=== PATIENT | female | born 1975 | race Caucasian/White ===

== ENCOUNTER → 2018-04-02 | Outpatient (CLI) | payer OTHER ==
--- NOTE | 2018-04-02 18:33 | Diagnostic Imaging Report ---
EXAM: Renal Ultrasound INDICATION: Recurrent UTI. COMPARISON: None TECHNIQUE: Transverse and longitudinal images of the kidneys and bladder were obtained. FINDINGS: Right Kidney: Size: 11.7 cm Echogenicity: Normal Parenchymal thickness: Normal Collecting system: No hydronephrosis Stones: None Cyst/Mass: None Left Kidney: Size: 13.4 cm Echogenicity: Normal Parenchymal thickness: Normal Collecting system: No hydronephrosis Stones: 0.9 cm lateral midpole calculus. Cyst/Mass: 1.9 x 1.4 x 1.4 cm superior pole cyst. 1.4 x 11.2 cm medial superior pole cyst. Bladder: Unremarkable. IMPRESSION: 0.9 cm left renal midpole calculus. Left renal cysts. Signed by: Dr. Gordon Kang MD on 04/02/2018 6:30 PM
== END ==
LOC: US 16:49
PROVIDERS: ATTEND Urology
DX: N39.0 Urinary tract infection, site not specified (principal)
CPT/HCPCS: 76770

== ENCOUNTER 2020-03-05 15:22 | Inpatient (IN) | payer OTHER ==
[~2020-03-05] VITALS: Ht 160 cm; Wt 87.8 kg
--- OUTSIDE RECORDS SUMMARY | 2020-03-05 15:25 | XMS REPORT ---
Author Author [facility] Organization [facility] Address [address] [place] [address] Phone Unavailable Care Team Providers Care Fiscal Technician Name Role Phone Jeyson PRINCE Attphys Unavailable Problems This patient has no known problems. Allergies, Adverse Reactions, Alerts This patient has no known allergies or adverse reactions. Medications This patient has no known medications. Procedures This patient has no known procedures. Results Test Description Test Time Test Comments Results Result Comments Source US RENAL RETROPERITONEAL COMP 2018-04-02 18:26:00 [place] [address] Patient Name: ERICK VO MR #: [id number] : 1975 Age/Sex: 42/F Req #: [id number] Adm Physician: Ordered by: JOSE R PRINCE MD Report #: [id number] Location: Room/Bed: Procedure: [id number] US/US RENAL RETROPERITONEAL COMP Exam Date: Exam Time: REPORT STATUS: Signed EXAM: Renal Ultrasound INDICATION: Recurrent UTI. COMPARISON: None TECHNIQUE: Transverse and longitudinal images of the kidneys and bladder were obtained. FINDINGS: Right Kidney: Size: 11.7 cm Echogenicity: Normal Parenchymal thickness: Normal Collecting system: No hydronephrosis Stones: None Cyst/Mass: None Left Kidney: Size: 13.4 cm Echogenicity: Normal Parenchymal thickness: Normal Collecting system: No hydronephrosis Stones: 0.9 cm lateral midpole calculus. Cyst/Mass: 1.9 x 1.4 x 1.4 cm superior pole cyst. 1.4 x 11.2 cm medial superior pole cyst. Bladder: Unremarkable. IMPRESSION: 0.9 cm left renal midpole calculus. Left renal cysts. Signed by: Dr. Grodon Damon MD on 04/02/2018 6:30 PM Dictated By: GORDON DAMON MD 29 Transcribed By: TANIA on 04/02/181829 COPY TO: JOSE R PRINCE MD
[2020-03-05] MEDS ORDERED: SODIUM CHLORIDE 0.9% 1000ML 1,000 ML IV STA ×2 (15:47)
[2020-03-05] MEDS ORDERED: FENTANYL CITRATE/PF 100MCG/2 ML INJ ONE (15:58)
[2020-03-05] MEDS ORDERED: SUCCINYLCHOLINE CHLORIDE 20 MG/ML 10ML VIAL ONE (16:15)
[2020-03-05] MEDS ORDERED: ACETAMINOPHEN 1000 MG/100 ML IV ONE (16:15)
[2020-03-05] MEDS ORDERED: DEXAMETHASONE SOD PHOS INJ 4 MG/ML VIAL ONE (16:15)
[2020-03-05] MEDS ORDERED: LIDOCAINE HCL 2% LOCAL INJ 5 ML SDV VIAL INJ ONE (16:15)
[2020-03-05] MEDS ORDERED: ONDANSETRON HCL INJ 2MG/ML 2ML 2 MG/ML VIAL ONE ×2 (16:15→21:02)
[2020-03-05 16:19] LABS: BASOPHILS % 0.2 % (0.0-1.0); HEMATOCRIT 36.7 % (34.2-44.1); HEMOGLOBIN 12.1 g/dL (12.0-16.0); LYMPHOCYTES # (AUTO) 0.8 (1.0-3.2); LYMPHOCYTES % 6.7 % (18.0-39.1); MEAN CORPUSCULAR HEMOGLOBIN 27.4 pg (28-32); MEAN CORPUSCULAR VOLUME 83.2 fL (81-99); MONOCYTES # (AUTO) 0.7 (0.2-0.8); MONOCYTES % 5.9 % (4.4-11.3); NEUTROPHILS # (AUTO) 9.9 (2.1-6.9); NEUTROPHILS % 86.8 % (38.7-80.0); PLATELET COUNT 215 x10e3/uL (140-360); RED BLOOD COUNT 4.41 x10e6/uL (3.6-5.1); RED CELL DISTRIBUTION WIDTH 14.5 % (11.7-14.4)
[2020-03-05] MEDS ORDERED: CEFEPIME 1GM/NS 0.9% 50 ML 50 ML IV SCH (16:30)
[2020-03-05 16:33] LABS: ALBUMIN 3.3 g/dL (3.5-5.0); ALBUMIN/GLOBULIN RATIO 0.8 (0.8-2.0); ANION GAP 17.2 mmol/L (8-16); CALCIUM 9.3 mg/dL (8.4-10.2); CREATININE, SERUM 1.24 mg/dL (0.57-1.11); POTASSIUM 3.2 mmol/L (3.5-5.1)
[2020-03-05 16:49] LABS: CLARITY,URINE SL CLOUDY (CLEAR); COLOR,URINE YELLOW (YELLOW); KETONES,URINE 2+ (NEGATIVE); LEUKOCYTE ESTERASE ,URINE SMALL (NEGATIVE); NITRITE,URINE POSITIVE (NEGATIVE); PROTEIN,URINE DIPSTICK >=300 (NEGATIVE); URINE UROBILINOGEN 0.2 mg/dL (0.2 - 1)
[2020-03-05 16:50] LABS: BILIRUBIN,URINE SMALL (NEGATIVE)
[2020-03-05 17:03] LABS: BACTERIA,URINE MANY /HPF; EPITHELIAL CELLS,URINE MANY /LPF
--- NOTE | 2020-03-05 18:21 | Emergency Department Note ---
History of Present Illnes History of Present Illness Chief Complaint: Genitourinary History of Present Illness This is a 44 year old female sent to the ED from Dr. Monique's office- pt complaining of flank pain and fevers for 3 days . Chief Complaint Comment PATIENT IN FROM HOME WITH COMPLAINTS OF LEFT FLANK PAIN AND ABDOMINAL PAIN SINCE THURSDAY; PATIENT MOANING AND CRYING IN TRIAGE, FEBRILE, RATES PAIN 10/10. STATES WAS SENT FROM DR MONIQUE'S OFFICE FOR ADMISSION. PATIENT ALERT AND ORIENTED, AMBULATORY WITHOUT ASSISTANCE Historian: Patient, Family Member Arrival Mode: Car Doctor'S Assistant Required: No Onset (how long ago): day(s) Radiation: back Severity: moderate Onset quality: gradual Timing of current episode: constant Progression: worsening Relieving factors: none Associated symptoms: fever/chills, nausea/vomiting Past Medical/Family History Physician Review I have reviewed the patient's past medical and family history. Any updates have been documented here. Past Medical History Recent Fever: No Clinical Suspicion of Infectio: No New/Unexplained Change in Ment: No Past Medical History: Hypertension, Kidney Stones Other Surgery: NODULES REMOVED FROM VOCAL CORDS I&D TO LEFT BREAST Social History Smoking Cessation: Never Smoker Counseling Performed: No Alcohol Use: None Any Illegal Drug Use: No TB Exposure/Symptoms: No Physically hurt or threatened: No Family History Family history of heart diseas: No Other Last Tetanus: UNKNOWN Any Pre-Existing Lines (PICC,: No Is patient up to date on immun: Yes Last Flu: UTD Last Pneumovax: NA Review of Systems Review of Systems Constitutional: as per HPI, chills, fever EENTM: no symptoms Cardiovascular: no symptoms Respiratory: no symptoms Gastrointestinal: no symptoms Genitourinary: no symptoms, dysuria, frequency, pain Musculoskeletal: no symptoms Neurological: no symptoms Psychological: no symptoms Endocrine: no symptoms Hematological/Lymphatic: no symptoms Review of other systems All other systems reviewed and negative. Physical Exam Related Data Allergies: Coded Allergies: No Known Allergies (Unverified , 12/29/16) Triage Vital Signs Vital Signs Date Time Temp Pulse Resp B/P (MAP) Pulse Ox O2 Delivery O2 Flow Rate FiO2 03/05/20 15:45 103.2 130 30 166/114 97 Physical Exam CONSTITUTIONAL Constitutional: well-developed, obese, ill appearing HENT HENT: normocephalic, atraumatic, oropharynx clear/moist, nose normal HENT L/R: left ext ear normal, right ext ear normal EYES Eyes: PERRL, conjunctivae normal NECK Neck: ROM normal PULMONARY Pulmonary: effort normal, breath sounds normal CARDIOVASCULAR Cardiovascular: regular rhythm, heart sounds normal, capillary refill normal, tachycardia GASTROINTESTINAL Abdominal: soft, bowel sounds normal GENITOURINARY Genitourinary: exam deferred SKIN Skin: warm MUSCULOSKELETAL Musculoskeletal: ROM normal NEUROLOGICAL Neurological: alert, oriented x 3, no gross motor or sensory deficits PSYCHOLOGICAL Psychological: mood/affect normal Results Laboratory Result Diagram: 03/05/20 1555 03/05/20 1555 Laboratory Laboratory Tests Test 03/05/20 15:55 03/05/20 15:48 White Blood Count 11.41 x10e3/uL (4.8-10.8) Red Blood Count 4.41 x10e6/uL (3.6-5.1) Hemoglobin 12.1 g/dL (12.0-16.0) Hematocrit 36.7 % (34.2-44.1) Mean Corpuscular Volume 83.2 fL (81-99) Mean Corpuscular Hemoglobin 27.4 pg (28-32) Mean Corpuscular Hemoglobin Concent 33.0 g/dL (31-35) Red Cell Distribution Width 14.5 % (11.7-14.4) Platelet Count 215 x10e3/uL (140-360) Neutrophils (%) (Auto) 86.8 % (38.7-80.0) Lymphocytes (%) (Auto) 6.7 % (18.0-39.1) Monocytes (%) (Auto) 5.9 % (4.4-11.3) Eosinophils (%) (Auto) 0.0 % (0.0-6.0) Basophils (%) (Auto) 0.2 % (0.0-1.0) Neutrophils # (Auto) 9.9 (2.1-6.9) Lymphocytes # (Auto) 0.8 (1.0-3.2) Monocytes # (Auto) 0.7 (0.2-0.8) Eosinophils # (Auto) 0.0 (0.0-0.4) Basophils # (Auto) 0.0 (0.0-0.1) Absolute Immature Granulocyte (auto 0.04 x10e3/uL (0-0.1) Sodium Level 135 mmol/L (136-145) Potassium Level 3.2 mmol/L (3.5-5.1) Chloride Level 100 mmol/L (98-107) Carbon Dioxide Level 21 mmol/L (22-29) Anion Gap 17.2 mmol/L (8-16) Blood Urea Nitrogen 16 mg/dL (7-26) Creatinine 1.24 mg/dL (0.57-1.11) Estimat Glomerular Filtration Rate 47 ML/MIN (60-) BUN/Creatinine Ratio 13 (6-25) Glucose Level 126 mg/dL (74-118) Lactic Acid Level 2.1 mmol/L (0.5-2.0) Calcium Level 9.3 mg/dL (8.4-10.2) Total Bilirubin 0.7 mg/dL (0.2-1.2) Aspartate Amino Transf (AST/SGOT) 43 IU/L (5-34) Alanine Aminotransferase (ALT/SGPT) 40 IU/L (0-55) Alkaline Phosphatase 60 IU/L (40-150) Total Protein 7.4 g/dL (6.5-8.1) Albumin 3.3 g/dL (3.5-5.0) Globulin 4.1 g/dL (2.3-3.5) Albumin/Globulin Ratio 0.8 (0.8-2.0) Human Chorionic Gonadotropin, Qual Negative (NEGATIVE) Urine Color Yellow (YELLOW) Urine Clarity Sl cloudy (CLEAR) Urine pH 6 (5 - 7) Urine Specific Stickney 1.030 (1.010-1.025) Urine Protein >=300 (NEGATIVE) Urine Glucose (UA) Negative (NEGATIVE) Urine Ketones 2+ (NEGATIVE) Urine Blood Moderate (NEGATIVE) Urine Nitrite Positive (NEGATIVE) Urine Bilirubin Small (NEGATIVE) Urine Urobilinogen 0.2 mg/dL (0.2 - 1) Urine Leukocyte Esterase Small (NEGATIVE) Urine RBC 11-20 /HPF (0-5) Urine WBC 11-20 /HPF (0-5) Urine Epithelial Cells Many /LPF (NONE) Urine Bacteria Many /HPF (NONE) Lab results reviewed: Yes Imaging Imaging results reviewed: Yes Impressions IMPRESSION: 1. 2 distal left ureteral calculi resulting in obstruction with mild dilatation of the left renal collecting system and left ureter. Cannot exclude superimposed infection in the proper clinical setting. 2. Additional bilateral subcentimeter nephrolithiasis and nephrocalcinosis as detailed above. 3. Hepatomegaly and hepatic steatosis. 4. Small hiatal hernia with mild dilatation of the distal esophagus. 5. Right ovarian dermoid. Signed by: Dr. Katherin Goff M.D. on 03/05/2020 8:27 PM Critical Care Time Total Critical Care Time (min): 35 Critical care time exclusive o: separately billable procedures Critcal care necessary due to: sepsis Subsequent provider I assumed direction of critical care for this patient from another provider of my specialty. Assessment & Plan Reassessment Reassessment Severe Sepsis Time: 1634 1. Source (time: 1615 urine) 2. SIRS (time: 1545 in triage heart rate 1:30, respiratory rate 30, temp 103.2 ) 3. Organ Dysfunction (time: 2.1, lactic acid 1634) Interventions: Blood cultures collected Lactic acid collected Broad Spectrum antibiotics cefepime given Lactic acid #1: 2.1 (time resulted 1634) Lactic acid #2: 1.3 (time resulted) Assessment & Plan Final Impression: (1) URINARY TRACT INFECTION, SITE NOT SPECIFIED (2) SEVERE SEPSIS WITHOUT SEPTIC SHOCK Assessment & Plan cbc, cmp ua OR for stent placement by Dr. Hooks Depart Disposition: ADMITTED Last Vital Signs Date Time Temp Pulse Resp B/P (MAP) Pulse Ox O2 Delivery O2 Flow Rate FiO2 03/05/20 15:45 103.2 130 30 166/114 97 Home Meds Reported Medications Losartan Potassium (LOSARTAN POTASSIUM) 25 Mg Tablet, PO DAILY 03/05/20 Medications in the ED Sodium Chloride 1,000 ml @ 0 mls/hr Q0M STAT IV Last administered on 03/05/20at 16:43; Admin Dose 1,000 MLS/HR; Start 03/05/20 at 15:47; Stop 03/05/20 at 15:48 Sodium Chloride 1,000 ml @ 0 mls/hr Q0M STAT IV Last administered on 03/05/20at 16:43; Admin Dose 1,000 MLS/HR; Start 03/05/20 at 15:47; Stop 03/05/20 at 15:48 Cefepime HCl 50 ml @ 100 mls/hr Q24H IV Last administered on 03/05/20at 16:44; Admin Dose 100 MLS/HR; Start 03/05/20 at 16:30; Stop 03/12/20 at 16:29 LOREN GAXIOLA DO Mar 05, 2020 18:21
--- OUTSIDE RECORDS SUMMARY | 2020-03-05 18:56 | XMS REPORT | Continuity of Care Document ---
Author Author [facility] Organization [facility] Address [address] [place] [address] Phone Unavailable Care Team Providers Care Dean Of Students Name Role Phone Jeyson PRINCE Attphys Unavailable Problems This patient has no known problems. Allergies, Adverse Reactions, Alerts This patient has no known allergies or adverse reactions. Medications This patient has no known medications. Procedures This patient has no known procedures. Results Test Description Test Time Test Comments Results Result Comments Source US RENAL RETROPERITONEAL COMP 2018-04-02 18:26:00 [place] [address] Patient Name: ERICK VO MR #: [id number] : 1975 Age/Sex: 42/F Req #: [id number] Adm Physician: Ordered by: JOSE R PRINCE MD Report #: [id number] Location: Room/Bed: Procedure: [id number] US/US RENAL RETROPERITONEAL COMP Exam Date: Exam [...] calculus. Left renal cysts. Signed by: Dr. Gordon Damon MD on 04/02/2018 6:30 PM Dictated By: GORDON DAMON MD 29 Transcribed By: TANIA on 04/02/181829 COPY TO: JOSE R PRINCE MD
--- NOTE | 2020-03-05 19:26 | NUR ---
Surgery team at bedside talking with pt & regarding procedure. Pt. calm & was ready for surgery as she stated.
[2020-03-05] MEDS ORDERED: IOPAMIDOL 300MG/ML 50ML INFUS..BTL IV ONE (19:27)
--- OUTSIDE RECORDS SUMMARY | 2020-03-05 20:16 | XMS REPORT | Continuity of Care Document ---
Author Author [facility] Organization [facility] Address [address] [place] [address] Phone Unavailable Care Team Providers Care Meat Loiner Name Role Phone Jeyson PRINCE Attphys Unavailable Problems This patient has no known problems. Allergies, Adverse Reactions, Alerts This patient has no known allergies or adverse reactions. Medications This patient has no known medications. Procedures This patient has no known procedures. Results Test Description Test Time Test Comments Results Result Comments Source US RENAL RETROPERITONEAL COMP 2018-04-02 18:26:00 [place] [address] Patient Name: ERICK VO MR #: [id number] : 1975 Age/Sex: 42/F Req #: [id number] Adm Physician: Ordered by: JOSE R PRINCE MD Report #: [id number] Location: Room/Bed: Procedure: [id number] US/US RENAL RETROPERITONEAL COMP Exam Date: Exam [...]
--- NOTE | 2020-03-05 20:30 | Diagnostic Imaging Report ---
EXAM: CT Abdomen and Pelvis WITHOUT contrast INDICATION: Kidney stone. Abdominal pain. COMPARISON: None. TECHNIQUE: Abdomen and pelvis were scanned utilizing a multidetector helical scanner from the lung base to the pubic symphysis without administration of IV contrast. Absence of intravenous contrast decreases sensitivity for detection of focal lesions and vascular pathology. Coronal and sagittal reformations were obtained. Routine protocol was performed. IV CONTRAST: None. ORAL CONTRAST: Water RADIATION DOSE: Total DLP: 680.93 mGy*cm Estimated effective dose: (DLP x 0.015 x size factor) mSv COMPLICATIONS: None FINDINGS: LINES and TUBES: None. LOWER THORAX: There is bibasilar atelectasis. Small hiatal hernia with dilatation of the distal esophagus. HEPATOBILIARY: Hepatomegaly. The liver is diffuse hypodense compared to the spleen, consistent with diffuse hepatic diffuse hepatic steatosis. No focal hepatic lesions. No biliary ductal dilation. GALLBLADDER: No radio-opaque stones or sludge. No wall thickening. SPLEEN: No splenomegaly. PANCREAS: No focal masses or ductal dilatation. ADRENALS: No adrenal nodules KIDNEYS/URETERS: Bilateral medullary nephrocalcinosis. Bilateral punctate renal calculi. In addition, there is a larger, 8 mm calculus in the interpolar region of the left kidney posteriorly on image 41. There is mild left pelvocaliectasis and dilatation of the left ureter, with 2 calculi within the distal left ureter proximal to the UVJ, measuring approximately 3-4 mm each on axial images 84 and 83. In addition, there are multiple phleboliths scattered throughout the pelvis. Left perinephric stranding. GI TRACT: No abnormal distention, wall thickening, or evidence of bowel obstruction. Appendix is normal. PELVIC ORGANS/BLADDER: 4.1 cm complex lesion in the right adnexa with some fat attenuation and calcifications suggestive of a dermoid. There is also a 4.3 x 3.1 cm follicular cyst in the left adnexa. LYMPH NODES: No lymphadenopathy. VESSELS: There is mild atherosclerotic disease in the aorta and major arterial branches. PERITONEUM / RETROPERITONEUM: No free air or fluid. BONES: No acute osseous abnormality. SOFT TISSUES: Unremarkable. IMPRESSION: 1. 2 distal left ureteral calculi resulting in obstruction with mild dilatation of the left renal collecting system and left ureter. Cannot exclude superimposed infection in the proper clinical setting. 2. Additional bilateral subcentimeter nephrolithiasis and nephrocalcinosis as detailed above. 3. Hepatomegaly and hepatic steatosis. 4. Small hiatal hernia with mild dilatation of the distal esophagus. 5. Right ovarian dermoid. Signed by: Dr. Katherin Goff M.D. on 03/05/2020 8:27 PM
[2020-03-05] MEDS ORDERED: VANCOMYCIN 1GM/NS 250 ML 250 ML IV ONE (21:00)
[2020-03-05 21:04] VITALS: BP 105/67
[2020-03-05 21:10] VITALS: BP 105/67
[2020-03-05] MEDS: MEROPENEM 1GM 100 ML IV SCH (22:00)
[2020-03-05] MEDS ORDERED: SODIUM CHLORIDE 0.9% 250ML 250 ML ONE (22:27)
[2020-03-05 22:41] VITALS: BP 105/67
[2020-03-05] MEDS ORDERED: LOSARTAN POTASS25 MG PO (23:01)
[2020-03-05] MEDS ORDERED: ONDANSETRON HCL INJ 2MG/ML 2ML 2 MG/ML VIAL IV PRN (23:15)
[2020-03-05] MEDS ORDERED: ACETAMINOPHEN 325 MG TAB PO PRN (23:15)
[2020-03-06] VITALS (8 sets, daily range): BP systolic 108–116; BP diastolic 72–77
[2020-03-06 05:55] LABS: BASOPHILS % 0.2 % (0.0-1.0); HEMATOCRIT 32.8 % (34.2-44.1); HEMOGLOBIN 10.9 g/dL (12.0-16.0); LYMPHOCYTES # (AUTO) 1.3 (1.0-3.2); LYMPHOCYTES % 10.3 % (18.0-39.1); MEAN CORPUSCULAR HEMOGLOBIN 28.7 pg (28-32); MEAN CORPUSCULAR HGB CONC 33.2 g/dL (31-35); MEAN CORPUSCULAR VOLUME 86.3 fL (81-99); MONOCYTES # (AUTO) 0.6 (0.2-0.8); MONOCYTES % 5.1 % (4.4-11.3); NEUTROPHILS # (AUTO) 10.5 (2.1-6.9); NEUTROPHILS % 83.8 % (38.7-80.0); PLATELET COUNT 196 x10e3/uL (140-360); RED CELL DISTRIBUTION WIDTH 14.6 % (11.7-14.4)
[2020-03-06 06:25] LABS: ALANINE AMINOTRANSFERASE 30 IU/L (0-55); ALBUMIN 2.6 g/dL (3.5-5.0); ALBUMIN/GLOBULIN RATIO 0.7 (0.8-2.0); ALKALINE PHOSPHATASE 58 IU/L (40-150); ANION GAP 14.3 mmol/L (8-16); BLOOD UREA NITROGEN 14 mg/dL (7-26); BUN/CREATININE RATIO 15 (6-25); CALCIUM 8.6 mg/dL (8.4-10.2); CARBON DIOXIDE 20 mmol/L (22-29); CHLORIDE 109 mmol/L (98-107); CREATININE, SERUM 0.91 mg/dL (0.57-1.11); EST GLOMERULAR FILTRATION RATE > 60 ML/MIN (60-); GLUCOSE 148 mg/dL (74-118); POTASSIUM 3.3 mmol/L (3.5-5.1); SODIUM 140 mmol/L (136-145)
--- NOTE | 2020-03-06 07:01 | NUR ---
BEDSIDE SHIFT REPORT RECEIVED FROM SENIOR RISK ANALYST NURSE. PT IN STABLE CONDITION.
[2020-03-06] MEDS: MEROPENEM 1GM 100 ML IV SCH ×3 (09:30→22:00)
[2020-03-06] MEDS ORDERED: POTASSIUM CHLORIDE 10MEQ EA PO SCH (10:30)
--- NOTE | 2020-03-06 14:19 | Operative Report ---
DATE OF PROCEDURE: 03/05/2020 SURGEON: Jose Juan Car MD PREOPERATIVE DIAGNOSES: 1. Microscopic hematuria. 2. Left-sided hydronephrosis. POSTOPERATIVE DIAGNOSES: 1. Microscopic hematuria. 2. Left-sided hydronephrosis. PROCEDURES: 1. Cystourethroscopy with right ureteral catheterization and right retrograde pyelogram (separate procedure for the diagnosis of microscopic hematuria). 2. Cystourethroscopy with placement of left indwelling of the stent (entirely separate procedure for the diagnosis of left hydronephrosis). 3. Supervision of fluoroscopy. 4. Interpretation of retrograde pyelography. ANESTHESIA: General. ESTIMATED BLOOD LOSS: Minimal. COMPLICATIONS: None. INDICATIONS FOR PROCEDURE: Ms. Rhoades is a very pleasant 44-year-old female with a history of hematuria, hydronephrosis and sepsis. She and I had a long discussion of alternatives, risks, and benefits including doing nothing, stent placement, nephrostomy. She voiced understanding of the options, alternatives, risks, and benefits and she elected to proceed. PROCEDURE IN DETAIL: After informed consent was obtained, the patient was taken to the operative suite, and placed in supine on the operative table, underwent general anesthesia by the Anesthesia Service, and was placed in dorsal supine position, and sterilely prepped and draped for cystoscopy. A 21-Anguillan cystoscope was inserted per urethra and normal urethra was noted. Panendoscopy of the bladder revealed no tumors, no stones. Both ureteral orifices were normal in anatomic location and position, and efflux urine. Bilateral retrograde pyelogram was performed, the right was normal, left revealed a 4 x 3 mm distal ureteral calculus with proximal hydronephrosis. A very large 10 x 8 mm renal pelvis stone on the left side. With moderate difficulty, the proximal collecting system was accessed. A hydronephrotic drip was seen. This was collected and sent for culture. A ureteral stent was then deployed with coil in renal pelvis and a coil in the bladder. The patient's bladder was drained. She was awakened from anesthesia and transported to recovery room in excellent condition. No untoward effects noted. Supervision of fluoroscopy and interpretation of retrograde pyelography: I was present for the entire procedure and supervised fluoroscopy. There was no radiologist present. Attention was turned to the left and right ureters, which were catheterized. An 8-Anguillan cone-tipped catheter in retrograde fashion, contrast was injected revealing delicate ureter, delicate pelvocaliceal system on the right side, 4 x 4 mm distal ureteral calculus on the left side, proximal hydronephrosis, a large 10 x 8 renal pelvis stone on the left side. Multiple small stones bilaterally. MD MARIN Coronel/MODL /[id number]
[2020-03-06] MEDS: VANCOMYCIN 1GM/NS 250 ML 250 ML IV SCH ×2 (14:30→23:15)
--- NOTE | 2020-03-06 14:39 | Consultation ---
DATE OF CONSULTATION: 03/05/2020 Urology Consultation Consultation called by in the emergency room. CHIEF COMPLAINT/HISTORY OF PRESENT ILLNESS: Ureteral stones. HISTORY OF PRESENT ILLNESS: Mrs. Berta Rhoades is a 44-year-old female patient of mine, who presented to my office this afternoon with fevers, chills, tachycardia, hypotension, clinical signs of sepsis, and a CT from the outside emergency room showing obstructed and infected stone. I instructed her to present to the [facility] Emergency Room, where she did. She continues to exhibit signs of septic shock with hypotension and tachycardia, acute renal failure, and high fevers with abnormal lactic acid. PAST MEDICAL HISTORY: Three C-sections, vocal cord surgery, hypertension, and history of kidney stones. MEDICATIONS: Please see MAR. ALLERGIES: NKDA. SOCIAL HISTORY: She denied smoking or drinking. FAMILY HISTORY: She denied urologic stones or malignancies. REVIEW OF SYSTEMS: Noncontributory other than problems mentioned above for 12-organ systems. PHYSICAL EXAMINATION: GENERAL: A middle-aged female, in no acute distress currently. VITAL SIGNS: Temperature 103.2, pulse 130, respirations 30, and blood pressure 166/104. HEENT: Sclerae anicteric. NECK: Supple. BACK: Without costovertebral bilaterally. ABDOMEN: Soft, it is nontender, it is obese, nondistended. : Normal female genitalia. EXTREMITIES: No edema. NEUROLOGIC: Moves all 4 extremities. PSYCHIATRIC: Alert, mood appropriate. SKIN: Intact. Normal color. PERTINENT LABORATORY DATA: Sodium 135, potassium 3.2, chloride 106, bicarb 21, BUN 16, creatinine 1.24, and glucose 126. Lactic acid 2.1. Hemoglobin 12, hematocrit 36, platelet count 215,000, and white blood cell count 11,400. AST 43. RADIOGRAPHIC DATA: CT scan revealing two 3 x 3 mm left ureteral calculus, an 8 x 10 left renal pelvis stone, bilateral medullary sponge kidneys. Urinalysis in my office too numerous to count reds, too numerous to count whites, positive nitrites; and at the hospital 11-20 reds, 11-20 whites, positive nitrites. IMPRESSION: 1. Microscopic hematuria. 2. Left-sided hydronephrosis. 3. Urinary tract infection. 4. Sepsis with shock. 5. Acute renal failure. 6. Left ureteral calculi. 7. Left renal calculi. 8. Hypertension. 9. Hypokalemia. 10. Obesity. PLAN: The patient will need emergent decompression of the obstructed infected system. I spoke to her the options, alternatives of stenting versus nephrostomy. We will attempt an emergent stent. She voiced explicit understanding that stent is a temporary indwelling device and it must be removed and failure to do so could lead to encrustation, infection, inflammation, atrophy, loss of the kidney, and even , and she elected to proceed and provide supportive care. Start empiric antibiotics. Defer heme and lytes to primary service. Suggest weight loss. Thank you for allowing me to participate in the care of my patient. We will be happy to follow along. MD MARIN Coronel/MODL /[id number]
--- NOTE | 2020-03-06 20:27 | NUR ---
Received report from nurse. Walking rounds completed.
[2020-03-07] VITALS: BP 126/77
--- NOTE | 2020-03-07 04:09 | NUR ---
Patient states she has painbut refused to get mustapha meds ordered. Also refused tylenol. Patient states she will talk with MD tomorrow,
[2020-03-07] MEDS: MEROPENEM 1GM 100 ML IV SCH ×2 (05:14→13:45)
[2020-03-07 05:47] LABS: BASOPHILS % 0.2 % (0.0-1.0); EOSINOPHILS % 0.1 % (0.0-6.0); HEMATOCRIT 31.2 % (34.2-44.1); HEMOGLOBIN 9.7 g/dL (12.0-16.0); LYMPHOCYTES # (AUTO) 2.7 (1.0-3.2); LYMPHOCYTES % 25.1 % (18.0-39.1); MEAN CORPUSCULAR HEMOGLOBIN 26.6 pg (28-32); MEAN CORPUSCULAR HGB CONC 31.1 g/dL (31-35); MEAN CORPUSCULAR VOLUME 85.7 fL (81-99); MONOCYTES # (AUTO) 0.7 (0.2-0.8); MONOCYTES % 6.6 % (4.4-11.3); NEUTROPHILS # (AUTO) 7.2 (2.1-6.9); NEUTROPHILS % 67.4 % (38.7-80.0); PLATELET COUNT 201 x10e3/uL (140-360); RED BLOOD COUNT 3.64 x10e6/uL (3.6-5.1); RED CELL DISTRIBUTION WIDTH 14.8 % (11.7-14.4)
[2020-03-07 06:07] LABS: BLOOD UREA NITROGEN 13 mg/dL (7-26); BUN/CREATININE RATIO 16 (6-25); CARBON DIOXIDE 21 mmol/L (22-29); CHLORIDE 109 mmol/L (98-107); CREATININE, SERUM 0.81 mg/dL (0.57-1.11); EST GLOMERULAR FILTRATION RATE > 60 ML/MIN (60-); GLUCOSE 98 mg/dL (74-118); SODIUM 139 mmol/L (136-145)
[2020-03-07 08:01] VITALS: BP 124/86
[2020-03-07 08:13] VITALS: BP 124/86
[2020-03-07] MEDS ORDERED: LOSARTAN POTASSIUM 25 MG TAB PO SCH (09:00)
[2020-03-07] MEDS: VANCOMYCIN 1GM/NS 250 ML 250 ML IV SCH (11:51)
[2020-03-07 12:03] VITALS: BP 118/77
[2020-03-07] MEDS ORDERED: CIPRO500 MG PO (12:12)
[2020-03-07] MEDS ORDERED: POTASSIUM CHLORIDE 10MEQ EA PO ONE ×2 (12:45→14:30)
[2020-03-20] MEDS ORDERED: OLMESARTAN PO (12:51)
== END 2020-03-07 15:10 | disposition home or self-care (01) | DRG 853 ==
LOC: ER 15:22 → UNDOADMIN 18:28 → ERHOLD 18:28 → OR 19:29 → MED/SURG 20:13
PROC: BT1D1ZZ Fluoroscopy of Right Kidney, Ureter and Bladder using Low Osmolar Contrast (ICD-10-PCS; 2020-03-05)
PROC: 0T778DZ Dilation of Left Ureter with Intraluminal Device, Via Natural or Artificial Opening Endoscopic (ICD-10-PCS; principal; 2020-03-05 19:39)
DX: A41.9 Sepsis, unspecified organism (principal); R65.21 Severe sepsis with septic shock; N13.6 Pyonephrosis; N17.9 Acute kidney failure, unspecified; I10 Essential (primary) hypertension; R31.29 Other microscopic hematuria; E87.6 Hypokalemia; E66.9 Obesity, unspecified; Z87.442 Personal history of urinary calculi; Z87.898 Personal history of other specified conditions; Z68.34 Body mass index [BMI] 34.0-34.9, adult; Z11.59 Encounter for screening for other viral diseases
CPT/HCPCS: 36415; 74176; 74420; 80048; 80053; 81001; 83605; 84702; 85025; 86850; 86900; 87040; 87086; 87186; 87635; 99284; C1758; C1769; C2617; J0330; J0692; J1100; J2001; J2405; J3010; J3370; J7030; J7050

== ENCOUNTER → 2020-03-23 | Day surgery (SDC) | payer OTHER ==
--- NOTE | 2020-03-20 15:46 | Diagnostic Imaging Report ---
Exam: KUB - 2 views Indication: Preoperative Comparison: CT abdomen and pelvis of 03/05/2020 Findings: Left internal nephroureteral stent in place. Multiple left renal calculi, the largest of which measures 9 mm just lateral to the proximal loop of the stent. Scattered smaller calculi measure up to 2 to 3 mm at the left upper pole and left lower pole. 2 to 3 mm calculi throughout the right kidney. Several 3 mm calcific densities in the pelvis just lateral to the distal aspect of the stent may represent ureteral calculi seen on prior CT abdomen and pelvis. Impression: Left internal nephroureteral stent in place. Bilateral renal calculi, the largest measuring 9 mm just lateral to the proximal loop of the stent. 3 mm calcific densities lateral to the distal aspect of the stent may represent residual ureteral calculi. Signed by: Andrei Peraza MD on 03/20/2020 3:43 PM
[~2020-03-23] MED LIST: CEFTRIAXONE SOD 1 GM/NS 50 ML 50 ML IV ONE; CIPRO500 MG PO; DEXAMETHASONE SOD PHOS INJ 4 MG/ML VIAL ONE; FENTANYL CITRATE/PF 100MCG/2 ML INJ ONE; IOPAMIDOL 300MG/ML 50ML INFUS..BTL IV ONE; LIDOCAINE HCL 2% LOCAL INJ 5 ML SDV VIAL INJ ONE; LOSARTAN POTASS25 MG PO; MEPERIDINE HCL INJ 25 MG/ML VIAL ONE; MIDAZOLAM HCL 2 MG/2 ML VIAL ONE; OLMESARTAN PO; ONDANSETRON HCL INJ 2MG/ML 2ML 2 MG/ML VIAL ONE; PROPOFOL IV EMULSION 10 MG/ML 20 ML VIAL ONE; SEVOFLURANE INHAL SOLN 250 ML PEN BTL ONE
[2020-03-23 09:05] VITALS: BP 128/93
--- NOTE | 2020-03-26 09:24 | Operative Report ---
DATE OF PROCEDURE: 03/23/2020 SURGEON: Jose Juan Car MD PREOPERATIVE DIAGNOSES: 1. Indwelling left ureteral stent. 2. Left ureteral calculus. 3. Left renal calculus. POSTOPERATIVE DIAGNOSES: 1. Indwelling left ureteral stent. 2. Left ureteral calculus. 3. Left renal calculus. PROCEDURES: 1. Cystourethroscopy with removal of a left indwelling stent (entirely separate procedure complicated, secondary to encrustation). 2. Left-sided ureteroscopy with laser lithotripsy (entirely separate procedure to debulk large left obstructing ureteral stone). 3. Left-sided ureteroscopy with stone extraction (entirely separate procedure with explicit purpose of sending stones for analysis, not required for laser lithotripsy). 4. Staged shock wave lithotripsy, left side (entirely separate procedure for the kidney stone on the left side). 5. Supervision of fluoroscopy for both ureteroscopic and stent removal portions. ANESTHESIA: General. ESTIMATED BLOOD LOSS: Minimal. COMPLICATIONS: None. INDICATIONS: Ms. Rhoades is a very pleasant 44-year-old female with an 8 x 10 mm left renal calculi and distal 6 x 7 mm ureteral calculi impacted, status post stent placement. She and I had a long discussion about alternatives, risks, and benefits of doing nothing, combination of ureteroscopy, shock-wave lithotripsy, open surgery. She wishes the options, alternatives, the risks, and benefits and she elected to proceed. PROCEDURE IN DETAIL: After informed consent was obtained, the patient was taken to the operative suite. She was placed supine on the operative table, underwent general anesthesia by the Anesthesia Service, placed in dorsal lithotomy position, and sterilely prepped and draped for cystoscopy. A 21-Martiniquais cystoscope was inserted per urethra and normal urethra was noted. Panendoscopy of the bladder revealed no tumors, no stones. A stent was seen extruding from left ureteral orifice, was encrusted. Stent was partially removed. Attempt was made to catheterize this failed. A guidewire was inserted alongside the stent; the stent was then removed intact. Ureteroscope was advanced to the level offending ureteral stone. Utilizing 365 micron laser fiber, the stone was obliterated in multiple fragments. Several of these fragments were basket extracted and passed off the table as specimen. Attention was then turned towards the renal calculi. Shock lithotripsy head was brought into use. Total 3000 shocks were delivered to the stone. Maximum power setting of 6. The patient tolerated procedure well, was transferred to the recovery room in excellent condition no untoward effects noted. Supervision of fluoroscopy: I was present for the entire procedure and supervised fluoroscopy. There was no radiologist present for both ureteroscopic and stent removal portion. Jose Juan Car MD ES/MODL /[id number] cc: Jose Juan Car MD
== END | disposition home or self-care (01) ==
LOC: OR 05:04
PROVIDERS: ATTEND Urology
DX: N20.0 Calculus of kidney (principal); N20.1 Calculus of ureter; N39.0 Urinary tract infection, site not specified; R31.29 Other microscopic hematuria; N13.39 Other hydronephrosis; Z46.6 Encounter for fitting and adjustment of urinary device; I10 Essential (primary) hypertension; Z01.812 Encounter for preprocedural laboratory examination; Z11.59 Encounter for screening for other viral diseases
CPT/HCPCS: 52353; 74018; 81025; 87635; 88300; 93005; J0696; J1100; J2001; J2175; J2250; J2405; J2704; J3010; Q9967; 50590